=== PATIENT | male | born 1960 | race Caucasian/White ===

== ENCOUNTER 2022-07-24 23:08 | Outpatient (CLI) | payer MEDICAID | END 2022-07-24 23:59 | disposition short-term general hospital (02) | LOC: EMS 23:08 | DX: R55 Syncope and collapse (principal); I95.9 Hypotension, unspecified; R11.2 Nausea with vomiting, unspecified; R10.9 Unspecified abdominal pain | CPT/HCPCS: A0425; A0427; A0999 ==